=== PATIENT | male | born 1955 | race Caucasian/White ===

== ENCOUNTER → 2018-03-29 10:35 | Outpatient (CLI) | payer OTHER, MEDICAID, SELFPAY ==
--- NOTE | 2018-03-29 | DI.RAD.S_ITS ---
PROCEDURE: XR SHOULDER LT MIN 2V INDICATIONS: LEFT SHOULDER PAIN TECHNIQUE: 4 views of the shoulder were acquired. COMPARISON: None. FINDINGS: Bones: No fractures or dislocations. No suspicious bony lesions. Visualized ribs appear intact. There are mild degenerative changes of the glenohumeral and moderate degenerative changes of the acromioclavicular joints. Soft tissues: No suspicious soft tissue calcifications. Aortic atherosclerosis is incidentally noted. A small calcified granuloma seen within the left lung. IMPRESSION: 1. Mild to moderate degenerative changes of the left shoulder joints. No fractures. 2. Calcified granuloma at the left lung. 3. Aortic atherosclerosis. Dictated by: Jonathan Mooney M.D. on 03/29/2018 at 10:35 Approved by: Jonathan Mooney M.D. on 03/29/2018 at 10:36
== END ==
PROVIDERS: Family Provider Family Medicine; PCP Family Medicine; Visit Provider Family Medicine
DX: M25.512 Pain in left shoulder (principal); M19.012 Primary osteoarthritis, left shoulder; I70.0 Atherosclerosis of aorta; J98.4 Other disorders of lung
CPT/HCPCS: 73030

== ENCOUNTER → 2018-04-01 17:49 | Outpatient (CLI) | payer OTHER, MEDICAID, SELFPAY ==
--- NOTE | 2018-04-01 | DI.MRI.S_ITS ---
PROCEDURE: MR SHOULDER LT WO CON INDICATIONS: LEFT SHOULDER PAIN AND ELBOW PAIN POST FALL TECHNIQUE: Noncontrast oblique coronal T2 fast spin echo with fat saturation, oblique sagittal T1 spin echo and T2 fast spin echo with fat saturation, axial T1 spin echo and T2 fast spin echo with fat saturation through the shoulder. COMPARISON: None. FINDINGS: Image quality: Excellent. Rotator cuff: Distal supraspinatus tendinosis and moderate grade articular surface partial thickness tear at its insertion on greater tuberosity of humeral head is seen with possible full-thickness perforation involving most posterior fibers of the distal supraspinatus. Tendinosis of the articular surface partial-thickness involving distal infraspinatus is also seen at its insertion femoral head. Distal subscapularis tendon is intact. Sagittal images demonstrate very mild supraspinatus muscle atrophy. Bones and bursae: No bone marrow contusions or fractures. Intraosseous cyst formation and greater tuberosity of humeral head near rotator cuff tendon insertion site is seen. Mild to moderate acromioclavicular joint and glenohumeral joint osteoarthritis is seen. The acromion demonstrates conventional anatomy, without an os acromiale. Trace amount of fluid within subacromial subdeltoid bursa is seen. No gross loose body. Capsule and soft tissues: In the absence of intra-articular contrast, there is contour irregularity and signal abnormality involving inferior labrum a 5 to 7:00 position suspicious for anterior labral tear. The glenohumeral ligaments appear intact. The long head of the biceps tendon demonstrates normal location and morphology. The rotator interval appears normal, without fibrosis. The coracohumeral ligament is normal in thickness. IMPRESSION: 1. Moderate acromioclavicular joint and glenohumeral joint osteoarthritis. 2. Tendinosis of moderate grade articular surface partial-thickness involving distal supraspinatus at its insertion on greater tuberosity of humeral head. Possible full-thickness perforation involving most posterior fibers of distal supraspinatus. Tendinosis and low-grade articular surface partial-thickness tear involving distal infraspinatus. 3. Suggestion of inferior labral tear at 5 to 7:00 position. Dictated by: Tavo Gonzalez M.D. on 04/02/2018 at 8:45 Approved by: Tavo Gonzalez M.D. on 04/02/2018 at 9:33
--- NOTE | 2018-04-01 | DI.MRI.S_ITS ---
PROCEDURE: MR ELBOW LT W CON INDICATIONS: LEFT SHOULDER AND ELBOW PAIN POST FALL TECHNIQUE: Noncontrast coronal proton density fast spin echo and T2 fast spin echo with fat saturation, axial and sagittal T1 spin echo and T2 fast spin echo with fat saturation through the elbow. COMPARISON: None. FINDINGS: Image quality: Excellent. Lateral structures: The lateral ulnar collateral ligament and radial collateral ligament both appear intact. The overlying common extensor tendon also appears normal. Medial structures: The ulnar collateral ligament appears intact. The overlying common flexor tendon appears normal. T the he ulnar nerve appears normal in size and signal within the cubital tunnel. Anterior structures: The biceps and brachialis tendons both appear intact as they insert onto the proximal radius and ulna, respectively. No bicipitoradial bursal fluid. The median and radial neurovascular bundles appear normal; no focal muscle atrophy to suggest nerve impingement. Posterior structures: The conjoint triceps tendon from the long and lateral heads appears intact. The medial head of the triceps tendon also appears normal, with direct muscle insertion onto the olecranon. No olecranon bursal fluid. Bone and cartilage: There is marrow edema involving posterior aspect of olecranon with no discrete fracture line seen, suggestive of bony contusion. Osteoarthritic changes in elbow joints are seen. Small subchondral cyst formation involving the trochlea is seen with subtle marrow edema and thinning of overlying articulating cartilage suspicious for a tiny osteochondral lesion in this area measures 4 mm in size. No other area of abnormal marrow signal is seen. Small amount of joint fluid is seen, no gross loose body. IMPRESSION: 1. Suggestion of bony contusion involving posterior olecranon with no discrete fracture line seen. Osteoarthritic changes in elbow joint with suggestion of possible 4 mm osteochondral lesion involving trochlea. Small amount of joint fluid, no gross loose body. 2. Normal tendons and ligaments are grossly intact. No gross muscle signal abnormality. Dictated by: Tavo Gonzalez M.D. on 04/02/2018 at 9:33 Approved by: Tavo Gonzalez M.D. on 04/02/2018 at 9:45
== END ==
PROVIDERS: Family Provider Family Medicine; PCP Family Medicine; Visit Provider Family Medicine
DX: M25.512 Pain in left shoulder (principal); M25.522 Pain in left elbow; M19.012 Primary osteoarthritis, left shoulder; M75.112 Incomplete rotator cuff tear or rupture of left shoulder, not specified as traumatic; M19.022 Primary osteoarthritis, left elbow
CPT/HCPCS: 73221

== ENCOUNTER 2018-09-15 08:35 | Emergency (ER) | payer SELFPAY ==
[2018-09-15 08:43] VITALS: BP 148/85; PULSE 50; RESP 20; TEMP 36.5; O2SAT 100; BMI 25.1
--- NOTE | 2018-09-15 09:08 | ED.ABDPAIN ---
HPI - Abdominal Pain General Chief Complaint: Abdominal Pain Stated Complaint: lower right abdominal pain Time Seen by Provider: 09/15/18 09:08 Source: patient Mode of arrival: ambulatory Limitations: no limitations History of Present Illness HPI narrative: A 63-year-old male comes to the emergency department with complaint of pain in his right lower abdomen. He states it is just sort of a right of the midline. Patient states almost a point tenderness. 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 He was kneeling became worse he went to sit down on the toilet and became quite painful. It has been constant since then it does not radiate to the back or side her anywhere else. He states that he has not had any fevers. He did felt sort of hot and cold when his pain was most intense. He denies any vomiting. Denies any nausea. He has had normal bowel movements and urination with no pain. There is no testicular pain. Patient has had bilateral hernia repair in the inguinal area the left and the right. He states it is pretty close to that area. He states it feels a little puffy but he can't feel any nodules or clear lumps. Patient states he also has a cardiac stent. He takes an aspirin daily but no other medications regularly. He has had some orthopedic surgeries but no intra-abdominal. Patient denies any other symptoms he states that it does feel worse when he tries to move his leg around but he does not any pain in the leg. Related Data Home Medications Medication Instructions Recorded Confirmed aspirin 81 mg PO DAILY #0 07/31/11 09/15/18 Vitamins 1 dose PO DAILY 09/15/18 09/15/18 Previous Rx's Medication Instructions Recorded hydrocodone-acetaminophen [[place]] 1 tab PO Q6H PRN #7 tab 09/15/18 Allergies Allergy/AdvReac Type Severity Reaction Status Date / Time No Known Drug Allergies Allergy Verified 09/15/18 09:44 Review of Systems Review of Systems ROS Unobtainable: All systems reviewed & are unremarkable except as noted in HPI and below Constitutional Reports chills (When pain was intense), Denies fever(s), Denies lethargy and Denies weakness Cardiovascular Denies chest pain and Denies dyspnea Respiratory Denies dyspnea Gastrointestinal Gastrointestinal: Reports abdominal pain, Denies melena, Denies hematochezia, Denies change in bowel habits, Denies diarrhea, Denies nausea and Denies vomiting Genitourinary Reports as per HPI, Denies hematuria, Denies difficulty urinating, Denies genital pain, Denies dysuria, Denies flank pain, Denies testicular pain, Denies urinary frequency, Denies urinary hesitancy, Denies urinary incontinence and Denies urinary urgency Musculoskeletal Denies back pain Neurologic Denies weakness [facility] Medical History (Updated 09/15/18 @ 10:46 by Samara Mendoza DO) Coronary artery disease (Chronic) Surgical History (Updated 09/15/18 @ 09:22 by Samara Menodza DO) History of bilateral inguinal hernia repair (Chronic) History of heart artery stent (Chronic) Social History Smoking Status: Never smoker Social History Smoking Status: Never smoker Exam Narrative Exam Narrative: GENERAL: Alert and oriented x three, well-nourished, well-appearing male in moderate distress. HEENT: Head normocephalic, atraumatic, EOMI, pupils reactive, face symmetric, moist mucous membranes NECK: Supple, full range of motion CARDIOVASCULAR: Regular rate and rhythm without murmurs, rubs or gallops. RESPIRATORY: Breath sounds equal bilaterally, no wheezes rales or rhonchi. ABDOMEN: Soft, patient is mildly tender to palpation just right of the midline a little bit above the pubis, and I am able to feel a little bit of fullness but no lumps or clear hernias. Patient not have any skin changes, there is no redness, discharge or lesions. Patient is nontender throughout the rest of his abdomen. He does appear uncomfortable when he tries to move his leg. He does not have any pain in the inguinal creases. No lumps in the inguinal creases or hernias. No testicular hernia noted. Normoactive bowel sounds all 4 quadrants. No guarding or rebound, rigidity, no mass. : No CVA tenderness EXTREMITIES: Normal range of motion, no clubbing or edema. Neurovascularly intact NEUROLOGICAL: Cranial nerves II through XII grossly intact. Moving all extremities SKIN: Warm, dry, no petechiae, no rashes or lesions. Initial Vital Signs Initial Vital Signs: Vital Signs Temperature 97.7 F 05/29/19 08:43 Pulse Rate 50 L 09/15/18 08:43 Respiratory Rate 20 09/15/18 08:43 Blood Pressure 148/85 H 09/15/18 08:43 Pulse Oximetry 100 09/15/18 08:43 Course Orders Ordered: Discontinued Medications Sodium Chloride (Normal Saline 0.9%) 1,000 mls @ 1,000 mls/hr IV BOLUS ONE Stop: 09/15/18 10:16 Last Infusion: 09/15/18 10:38 Dose: 0 mls/hr Admin: 09/15/18 09:45 Dose: 1,000 mls/hr Ketorolac Tromethamine (Toradol) 30 mg IV NOW ONE Stop: 09/15/18 09:18 Last Admin: 09/15/18 09:45 Dose: 30 mg Vital Signs - 8 hr 09/15/18 11:05 Pulse Rate 69 Respiratory Rate 18 Blood Pressure 141/82 H Pulse Oximetry 100 MDM - Abdominal Pain Lab Data Attestation: I reviewed the patient's lab results. Result diagrams: 09/15/18 09:20 09/15/18 09:20 Lab Results 09/15/18 09/15/18 Range/Units 09:20 09:20 WBC 5.6 (4.5-11.0) X10^3/uL RBC 4.42 L (4.5-5.9) X10^6/uL Hgb 13.5 (13.5-17.5) g/dL Hct 39.5 L (41-53) % MCV 89.4 (80-100) fL MCH 30.5 (26-34) PG MCHC 34.1 (30-36) % RDW 13.3 (11.6-14.8) % Plt Count 208 (150-400) X10^3/uL Neut % (Auto) 64.6 (50-75) % Lymph % (Auto) 24.8 L (25-40) % [place] % (Auto) 6.9 (3-14) % Eos % (Auto) 2.8 (2-4) % Baso % (Auto) 0.9 (0-2) % Neut # (Auto) 3600 (9598-8146) /uL Lymph # (Auto) 1400 (4703-9001) /uL [place] # (Auto) 400 (0-900) /uL Eos # (Auto) 200 (0-450) /uL Baso # (Auto) 100 (0-100) /uL Sodium 138 (137-145) mmol/L Potassium 4.3 (3.4-5.1) mmol/L Chloride 101 (98-107) mmol/L Carbon Dioxide 30 (22-32) mmol/L BUN 13 (9-20) mg/dL Creatinine 0.70 (0.66-1.25) mg/dL Estimated GFR > 60.0 (>60) mL/min BUN/Creatinine Ratio 18.6 (6-22) Glucose 103 (80-110) mg/dL Calcium 9.2 (8.4-10.2) mg/dL Total Bilirubin 0.6 (0.2-1.3) mg/dL AST 48 (17-59) IU/L ALT 26 (21-72) IU/L Alkaline Phosphatase 60 (38-126) U/L Total Protein 6.6 (6.3-8.2) g/dL Albumin 4.1 (3.5-5.0) g/dL Globulin 2.5 (1.7-4.1) g/dL Albumin/Globulin Ratio 1.6 (1.0-2.8) Lipase 69 (23-300) U/L Point of care testing: Urine Dip Bedside Urine Glucose Negative Bedside Urine Bilirubin - Negative Bedside Urine Ketone - Negative Urine Specific [place] 1.015 Bedside Urine Occult Blood - Negative Bedside Urine pH 6 Bedside Urine Protein - Negative Bedside Urine Nitrite - Negative Bedside Urine Leukocytes - Negative Esterase Imaging Data CT scan - abdomen: Radiologist's impression: [address] [address] [address] Scan Report Signed Patient: Mike Malagon FMR#: [id number] : 5Acct:[id number] Age/Sex: 63 / MDate of Service: 09/15/18 Loc: ED Accession Number: [id number] Procedure: CT abdomen pelvis w con Ordering Provider: Samara Mendoza D.O. PROCEDURE: CT ABDOMEN PELVIS W CON INDICATIONS: pt tender over r suprapubic, area of old hernia, ? hernia. TECHNIQUE: After the administration of intravenous contrast, 5 mm thick sections acquired from the diaphragm to the symphysis. 5 mm coronal and sagittal reformats were acquired. For radiation dose reduction, the following was used: automated exposure control, adjustment of mA and/or kV according to patient size. COMPARISON: None. FINDINGS: Image quality: Excellent. ABDOMEN: Lung bases: Lung bases are clear. Heart size is normal. Solid organs: Liver is normal in size and enhancement. Gallbladder contains numerous small gallstones. Biliary system is non dilated. Pancreas enhances normally. Spleen is normal in size and enhancement. No adrenal nodules. Kidneys demonstrate normal size and enhancement, without hydronephrosis. Peritoneum and bowel: Bowel loops demonstrate normal wall thickness and caliber. No free fluid or air. Normal appendix. No free air, free fluid, or abscess cavity. Sigmoid diverticulosis without evidence of diverticulitis. Nodes and vessels: No retroperitoneal or mesenteric adenopathy by size criteria. Aorta and inferior vena cava are normal in size. Relatively advanced atherosclerotic calcifications. Miscellaneous: No ventral hernias. PELVIS: Genitourinary: Bladder wall thickness is normal. Miscellaneous: No inguinal hernias or adenopathy. Previous right inguinal hernia repair. No evidence of residual or recurrent hernia. Bones: No suspicious bony lesions. No vertebral body compression fractures. IMPRESSION: 1. No evidence of residual or recurrent right inguinal hernia. 2. Normal appendix. 3. No evidence acute abdominal process. 4. Atherosclerosis. 5. Sigmoid diverticulosis without evidence of diverticulitis. 6. Gallstones. Dictated by: Coleman Wilkins M.D. on 09/15/2018 at 10:30 Approved by: Coleman Wilkins M.D. on 09/15/2018 at 10:35 [facility] Narrative Medical decision making narrative: Patient I was not able to palpate an obvious hernia. CT does not show a hernia. Lab work is with a normal urine. patient has some sigmoid diverticulosis but his tenderness is more suprapubic region. Patient's pain has resolved. His lab work is normal. His urine is normal. He feels much better. 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 He thought it might be a muscle strain initially. We also discussed the any very very small hernia that self reduced and there was no longer any bowel when he took his images this would be a possibility although I was not able to palpate 1. We discussed red flag symptoms reasons to return. Patient is comfortable with this plan. Discharge Plan Departure Patient Disposition: Home Clinical Impression: Abdominal pain Discharge Date/Time: 09/15/18 11:06 Interventions: ED Discharge Assessment Last Done: 09/15/18 11:05 Instructions: Acute Abdominal Pain Activity Restrictions/Additional Instructions: Follow-up with primary care in the next 2-3 days for recheck of your symptoms are not improving. Continue medication as prescribed, this medication can make you sleepy so do not drive, perform hazardous activities or make any major decisions while taking it. Return to the emergency department for fevers greater 100.4 F, passing out, worsening abdominal pain, recurrent lumps, persistent vomiting, black or bloody stools. New testicular pain or difficulty with urination or other new or concerning symptoms. Prescriptions: New hydrocodone-acetaminophen [[place]] 5-325 mg tablet 1 tab PO Q6H PRN (Reason: pain) Qty: 7 RF: 0 No Action aspirin 81 mg Tablet,Delayed Release (Dr/Ec) 81 mg PO DAILY Qty: 0 RF: 0 Vitamins 1 dose PO DAILY RF: 0 Referrals: Anca Bhatia MD [Primary Care Provider] - Stand Alone Forms: Work Release Note
--- NOTE | 2018-09-15 09:17 | DI.CT.S_ITS ---
PROCEDURE: CT ABDOMEN PELVIS W CON INDICATIONS: pt tender over r suprapubic, area of old hernia, ? hernia. TECHNIQUE: After the administration of intravenous contrast, 5 mm thick sections acquired from the diaphragm to the symphysis. 5 mm coronal and sagittal reformats were acquired. For radiation dose reduction, the following was used: automated exposure control, adjustment of mA and/or kV according to patient size. COMPARISON: None. FINDINGS: Image quality: Excellent. ABDOMEN: Lung bases: Lung bases are clear. Heart size is normal. Solid organs: Liver is normal in size and enhancement. Gallbladder contains numerous small gallstones. Biliary system is non dilated. Pancreas enhances normally. Spleen is normal in size and enhancement. No adrenal nodules. Kidneys demonstrate normal size and enhancement, without hydronephrosis. Peritoneum and bowel: Bowel loops demonstrate normal wall thickness and caliber. No free fluid or air. Normal appendix. No free air, free fluid, or abscess cavity. Sigmoid diverticulosis without evidence of diverticulitis. Nodes and vessels: No retroperitoneal or mesenteric adenopathy by size criteria. Aorta and inferior vena cava are normal in size. Relatively advanced atherosclerotic calcifications. Miscellaneous: No ventral hernias. PELVIS: Genitourinary: Bladder wall thickness is normal. Miscellaneous: No inguinal hernias or adenopathy. Previous right inguinal hernia repair. No evidence of residual or recurrent hernia. Bones: No suspicious bony lesions. No vertebral body compression fractures. IMPRESSION: 1. No evidence of residual or recurrent right inguinal hernia. 2. Normal appendix. 3. No evidence acute abdominal process. 4. Atherosclerosis. 5. Sigmoid diverticulosis without evidence of diverticulitis. 6. Gallstones. Dictated by: Coleman Wilkins M.D. on 09/15/2018 at 10:30 Approved by: Coleman Wilkins M.D. on 09/15/2018 at 10:35
--- NOTE | 2018-09-15 09:24 | ED_ITS ---
HPI - Abdominal Pain General Chief Complaint: Abdominal Pain Stated Complaint: lower right abdominal pain Time Seen by Provider: 09/15/18 09:08 Source: patient Mode of arrival: ambulatory Limitations: no limitations History of Present Illness HPI narrative: A 63-year-old male comes to the emergency department with c omplaint of pain in his right lower abdomen. He states it is just sort of a right of the midline. Patient states almost a point tenderness. 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 He was kneeling became worse he went to sit down on the toilet and became quite painful. It has been constant since then it does not radiate to the back or side her anywhere else. He states that he has not had any fevers. He did felt sort of hot and cold when his pain was most intense. He denies any vomiting. Denies any nausea. He has had normal bowel movements and urination with no pain. There is no testicular pain. Patient has had bilateral hernia repair in the inguinal area the left and the right. He states it is pretty close to that area. He states it feels a little puffy but he can't feel any nodules or clear lumps. Patient states he also has a cardiac stent. He takes an aspirin daily but no other medications regularly. He has had some orthopedic surgeries but no intra-abdominal. Patient denies any other symptoms he states that it does feel worse when he tries to move his leg around but he does not any pain in the leg. Related Data Home Medications Medication Instructions Recorded Confirmed aspirin 81 mg PO DAILY #0 07/31/11 09/15/18 Vitamins 1 dose PO DAILY 09/15/18 09/15/18 Previous Rx's Medication Instructions Recorded hydrocodone-acetaminophen [Edison] 1 tab PO Q6H PRN #7 tab 09/15/18 Allergies Allergy/AdvReac Type Severity Reaction Status Date / Time No Known Drug Allergies Allergy Verified 09/15/18 09:44 Review of Systems Review of Systems ROS Unobtainable: All systems reviewed & are unremarkable except as noted in HPI and below Constitutional Reports chills (When pain was intense), Denies fever(s), Denies lethargy and D enies weakness Cardiovascular Denies chest pain and Denies dyspnea Respiratory Denies dyspnea Gastrointestinal Gastrointestinal: Reports abdominal pain, Denies melena, Denies hematochezia, Denies change in bowel habits, Denies diarrhea, Denies nausea and Denies vomiting Genitourinary Reports as per HPI, Denies hematuria, Denies difficulty urinating, Denies genital pain, Denies dysuria, Denies flank pain, Denies testicular pain, Denies urinary frequency, Denies urinary hesitancy, Denies urinary incontinence and Denies urinary urgency Musculoskeletal Denies back pain Neurologic Denies weakness [facility] Medical History (Updated 09/15/18 @ 10:46 by Samara Mendoza DO) Coronary artery disease (Chronic) Surgical History (Updated 09/15/18 @ 09:22 by Samara Mendoza DO) History of bilateral inguinal hernia repair (Chronic) History of heart artery stent (Chronic) Social History Smoking Status: Never smoker Social History Smoking Status: Never smoker Exam Narrative Exam Narrative: GENERAL: Alert and oriented x three, well-nourished, well- appearing male in moderate distress. HEENT: Head normocephalic, atraumatic, EOMI, pupils reactive, face symmetric, moist mucous membranes NECK: Supple, full range of motion CARDIOVASCULAR: Regular rate and rhythm without murmurs, rubs or gallops. RESPIRATORY: Breath sounds equal bilaterally, no wheezes rales or rhonchi. ABDOMEN: Soft, patient is mildly tender to palpation just right of the midline a little bit above the pubis, and I am able to feel a little bit of fullness but no lumps or clear hernias. Patient not have any skin changes, there is no redness, discharge or lesions. Patient is nontender throughout the rest of his abdomen. He does appear uncomfortable when he tries to move his leg. He does not have any pain in the inguinal creases. No lumps in the inguinal creases or hernias. No testicular hernia noted. Normoactive bowel sounds all 4 quadrants. No guarding or rebound, rigidity, no mass. : No CVA tenderness EXTREMITIES: Normal range of motion, no clubbing or edema. Neurovascularly intact NEUROLOGICAL: Cranial nerves II through XII grossly intact. Moving all extremities SKIN: Warm, dry, no petechiae, no rashes or lesions. Initial Vital Signs Initial Vital Signs: Vital Signs Temperature 97.7 F 09/15/18 08:43 Pulse Rate 50 L 09/15/18 08:43 Respiratory Rate 20 09/15/18 08:43 Blood Pressure 148/85 H 09/15/18 08:43 Pulse Oximetry 100 09/15/18 08:43 Course Orders Ordered: Discontinued Medications Sodium Chloride (Normal Saline 0.9%) 1,000 mls @ 1,000 mls/hr IV BOLUS ONE Stop: 09/15/18 10:16 Last Infusion: 09/15/18 10:38 Dose: 0 mls/hr Admin: 09/15/18 09:45 Dose: 1,000 mls/hr Ketorolac Tromethamine (Toradol) 30 mg IV NOW ONE Stop: 09/15/18 09:18 Last Admin: 09/15/18 09:45 Dose: 30 mg Vital Signs - 8 hr 09/15/18 11:05 Pulse Rate 69 Respiratory Rate 18 Blood Pressure 141/82 H Pulse Oximetry 100 MDM - Abdominal Pain Lab Data Attestation: I reviewed the patient's lab results. Result diagrams: 09/15/18 09:20 09/15/18 09:20 Lab Results 09/15/18 09/15/18 Range/Units 09:20 09:20 WBC 5.6 (4.5-11.0) X10^3/uL RBC 4.42 L (4.5-5.9) X10^6/uL Hgb 13.5 (13.5-17.5) g/dL Hct 39.5 L (41-53) % MCV 89.4 (80-100) fL MCH 30.5 (26-34) PG MCHC 34.1 (30-36) % RDW 13.3 (11.6-14.8) % Plt Count 208 (150-400) X10^3/uL Neut % (Auto) 64.6 (50-75) % Lymph % (Auto) 24.8 L (25-40) % Gilchrist % (Auto) 6.9 (3-14) % Eos % (Auto) 2.8 (2-4) % Baso % (Auto) 0.9 (0-2) % Neut # (Auto) 3600 (5693-6211) /uL Lymph # (Auto) 1400 (0191-9874) /uL Gilchrist # (Auto) 400 (0-900) /uL Eos # (Auto) 200 (0-450) /uL Baso # (Auto) 100 (0-100) /uL Sodium 138 (137-145) mmol/L Potassium 4.3 (3.4-5.1) mmol/L Chloride 101 (98-107) mmol/L Carbon Dioxide 30 (22-32) mmol/L BUN 13 (9-20) mg/dL Creatinine 0.70 (0.66-1.25) mg/dL Estimated GFR > 60.0 (>60) mL/min BUN/Creatinine Ratio 18.6 (6-22) Glucose 103 (80-110) mg/dL Calcium 9.2 (8.4-10.2) mg/dL Total Bilirubin 0.6 (0.2-1.3) mg/dL AST 48 (17-59) IU/L ALT 26 (21-72) IU/L Alkaline Phosphatase 60 (38-126) U/L Total Protein 6.6 (6.3-8.2) g/dL Albumin 4.1 (3.5-5.0) g/dL Globulin 2.5 (1.7-4.1) g/dL Albumin/Globulin Ratio 1.6 (1.0-2.8) Lipase 69 (23-300) U/L Point of care testing: Urine Dip Bedside Urine Glucose Negative Bedside Urine Bilirubin - Negative Bedside Urine Ketone - Negative Urine Specific [place] 1.015 Bedside Urine Occult Blood - Negative Bedside Urine pH 6 Bedside Urine Protein - Negative Bedside Urine Nitrite - Negative Bedside Urine Leukocytes - Negative Esterase Imaging Data CT scan - abdomen: Radiologist's impression: [address] [address] [address] Scan Report Signed Patient: Mike Malagon FMR#: [id number] : 5Acct:[id number] Age/Sex: 63 / MDate of Service: 09/15/18 Loc: ED Accession Number: [id number] Procedure: CT abdomen pelvis w con Ordering Provider: Samara Mendoza D.O. PROCEDURE: CT ABDOMEN PELVIS W CON INDICATIONS: pt tender over r suprapubic, area of old hernia, ? hernia. TECHNIQUE: After the administration of intravenous contrast, 5 mm thick sections acquired from the diaphragm to the symphysis. 5 mm coronal and sagittal reformats were acquired. For radiation dose reduction, the following was used: automated exposure control, adjustment of mA and/or kV according to patient size. COMPARISON: None. FINDINGS: Image quality: Excellent. ABDOMEN: Lung bases: Lung bases are clear. Heart size is normal. Solid organs: Liver is normal in size and enhancement. Gallbladder contains numerous small gallstones. Biliary system is non dilated. Pancreas enhances normally. Spleen is normal in size and enhancement. No adrenal nodules. Kidneys demonstrate normal size and enhancement, without hydronephrosis. Peritoneum and bowel: Bowel loops demonstrate normal wall thickness and caliber. No free fluid or air. Normal appendix. No free air, free fluid, or abscess cavity. Sigmoid diverticulosis without evidence of diverticulitis. Nodes and vessels: No retroperitoneal or mesenteric adenopathy by size crit eria. Aorta and inferior vena cava are normal in size. Relatively advanced atherosclerotic calcifications. Miscellaneous: No ventral hernias. PELVIS: Genitourinary: Bladder wall thickness is normal. Miscellaneous: No inguinal hernias or adenopathy. Previous right inguinal hernia repair. No evidence of residual or recurrent hernia. Bones: No suspicious bony lesions. No vertebral body compression fractures. IMPRESSION: 1. No evidence of residual or recurrent right inguinal hernia. 2. Normal appendix. 3. No evidence acute abdominal process. 4. Atherosclerosis. 5. Sigmoid diverticulosis without evidence of diverticulitis. 6. Gallstones. Dictated by: Coleman Wilkins M.D. on 09/15/2018 at 10:30 Approved by: Coleman Wilkins M.D. on 09/15/2018 at 10:35 [facility] Narrative Medical decision making narrative: Patient I was not able to palpate an obvious hernia. CT does not show a hernia. Lab work is with a normal urine. patient has some sigmoid diverticulosis but his tenderness is more suprapubic region. Patient's pain has resolved. His lab work is normal. His urine is normal. He feels much better. 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 He thought it might be a muscle strain initially. We also discussed the any very very small hernia that self reduced and there was no longer any bowel when he took his images this would be a possibility although I was not able to palpate 1. We discussed red flag symptoms reasons to return. Patient is comfortable with this plan. Discharge Plan Departure Patient Disposition: Home Clinical Impression: Abdominal pain Discharge Date/Time: 09/15/18 11:06 Interventions: ED Discharge Assessment Last Done: 09/15/18 11:05 Instructions: Acute Abdominal Pain Activity Restrictions/Additional Instructions: Follow-up with primary care in the next 2-3 days for recheck of your symptoms are not improving. Continue medication as prescribed, this medication can make you sleepy so do not drive, perform hazardous activities or make any major decisions while taking it. Return to the emergency department for fevers greater 100.4 F, passing out, worsening abdominal pain, recurrent lumps, persistent vomiting, black or bloody stools. New testicular pain or difficulty with urination or other new or concerning symptoms. Prescriptions: New hydrocodone-acetaminophen [Edison] 5-325 mg tablet 1 tab PO Q6H PRN (Reason: pain) Qty: 7 RF: 0 No Action aspirin 81 mg Tablet,Delayed Release (Dr/Ec) 81 mg PO DAILY Qty: 0 RF: 0 Vitamins 1 dose PO DAILY RF: 0 Referrals: Anca Bhatia MD [Primary Care Provider] - Stand Alone Forms: Work Release Note
[2018-09-15 09:27] LABS: Add Manual Diff / Slide Review NO; Basophils Absolute Auto 100 /uL (0-100); Basophils Percent Auto 0.9 % (0-2); Eosinophils Absolute Auto 200 /uL (0-450); Eosinophils Percent Auto 2.8 % (2-4); Hematocrit 39.5 % (41-53); Hemoglobin 13.5 g/dL (13.5-17.5); Lymphocytes Absolute Auto 1400 /uL (1100-4500); Lymphocytes Percent Auto 24.8 % (25-40); Mean Corpuscular HGB Conc 34.1 % (30-36); Mean Corpuscular Hemoglobin 30.5 PG (26-34); Mean Corpuscular Volume 89.4 fL (80-100); Monocytes Absolute Auto 400 /uL (0-900); Monocytes Percent Auto 6.9 % (3-14); Neutrophils Absolute Auto 3600 /uL (1500-7000); Neutrophils Percent Auto 64.6 % (50-75); Platelet Count 208 X10^3/uL (150-400); Red Blood Cell Count 4.42 X10^6/uL (4.5-5.9); Red Cell Distribution Width 13.3 % (11.6-14.8); White Blood Cell Count 5.6 X10^3/uL (4.5-11.0)
[2018-09-15 09:30] VITALS: BP 140/83; PULSE 46; RESP 16; O2SAT 99
[2018-09-15 09:33] LABS: Alanine Aminotransferase 26 IU/L (21-72); Albumin 4.1 g/dL (3.5-5.0); Albumin Globulin Ratio 1.6 (1.0-2.8); Alkaline Phosphatase 60 U/L (38-126); Aspartate Aminotransferase 48 IU/L (17-59); BUN Creatinine Ratio 18.6 (6-22); Bilirubin Total 0.6 mg/dL (0.2-1.3); Blood Urea Nitrogen 13 mg/dL (9-20); Calcium 9.2 mg/dL (8.4-10.2); Carbon Dioxide 30 mmol/L (22-32); Chloride 101 mmol/L (98-107); Estimated Glomerular Filt Rate > 60.0 mL/min (>60); Globulin 2.5 g/dL (1.7-4.1); Glucose 103 mg/dL (80-110); HEMOLYSIS 27 (0-50); Lipase 69 U/L (23-300); Potassium 4.3 mmol/L (3.4-5.1); Sodium 138 mmol/L (137-145); Total Protein 6.6 g/dL (6.3-8.2)
[2018-09-15] MEDS: SODIUM CHLORIDE 0.9% 1,000 ML 1000 ML IV (09:45)
[2018-09-15] MEDS: KETOROLAC 60 MG/2 ML VIAL 30 MG IV (09:45)
[2018-09-15 10:30] VITALS: BP 143/79; PULSE 57; RESP 18; O2SAT 94
[2018-09-15 11:05] VITALS: BP 141/82; PULSE 69; RESP 18; O2SAT 100
== END 2018-09-15 11:06 | disposition home or self-care (01) ==
PROVIDERS: Emergency Provider Emergency Medicine; Family Provider Family Medicine; PCP Family Medicine
DX: R10.9 Unspecified abdominal pain (principal); Z79.82 Long term (current) use of aspirin; Z95.818 Presence of other cardiac implants and grafts
CPT/HCPCS: 36591; 74177; 80053; 81003; 83690; 85025; 96361; 96374; 99283; 99284; J1885; Q9967

== ENCOUNTER 2019-08-29 10:59 | Emergency (ER) | payer OTHER, SELFPAY ==
[2019-08-29 11:12] VITALS: BP 109/62; PULSE 63; RESP 20; TEMP 36.4; O2SAT 96
--- NOTE | 2019-08-29 11:18 | DI.RAD.S_ITS ---
PROCEDURE: XR CHEST 2V INDICATIONS: Shortness of breath upon exertion x 1 mo. Non smoker. TECHNIQUE: 2 views of the chest were acquired. COMPARISON: [facility], CT, CT ABDOMEN PELVIS W CON, 09/15/2018, 10:06. FINDINGS: Surgical changes and devices: None. Lungs and pleura: No areas of focal lung consolidation can be seen. Mild areas of interstitial prominence can be seen inferiorly. No pleural effusions or pneumothorax. Mediastinum: Mediastinal contours are normal. Heart size is normal. Bones and chest wall: No suspicious bony abnormalities. Soft tissues appear unremarkable. IMPRESSION: Mild areas of interstitial elements can be seen inferiorly. Differential diagnosis includes mild pulmonary edema, atypical or viral infiltrate, and artifact. If clinically appropriate, please consider a followup plain film series, performed in deep inspiration versus a dedicated chest CT with IV contrast for further evaluation. Dictated by: Bolivar Buenrostro M.D. on 08/29/2019 at 11:03 Approved by: Bolivar Buenrostro M.D. on 08/29/2019 at 11:05
[2019-08-29 13:12] LABS: Add Manual Diff / Slide Review NO; Basophils Absolute Auto 100 /uL (0-100); Basophils Percent Auto 0.9 % (0-2); Eosinophils Absolute Auto 100 /uL (0-450); Eosinophils Percent Auto 2.1 % (2-4); Hematocrit 39.8 % (41-53); Hemoglobin 13.5 g/dL (13.5-17.5); Lymphocytes Absolute Auto 1300 /uL (1100-4500); Lymphocytes Percent Auto 22.4 % (25-40); Mean Corpuscular HGB Conc 33.8 % (30-36); Mean Corpuscular Hemoglobin 30.7 PG (26-34); Mean Corpuscular Volume 90.6 fL (80-100); Monocytes Absolute Auto 400 /uL (0-900); Monocytes Percent Auto 6.7 % (3-14); Neutrophils Absolute Auto 4000 /uL (1500-7000); Neutrophils Percent Auto 67.9 % (50-75); Platelet Count 206 X10^3/uL (150-400); Red Blood Cell Count 4.39 X10^6/uL (4.5-5.9); White Blood Cell Count 5.9 X10^3/uL (4.5-11.0)
[2019-08-29 13:14] VITALS: O2SAT 98
[2019-08-29 13:25] LABS: Lactate (Lactic Acid) 0.8 mmol/L (0.7-2.1)
[2019-08-29 13:29] LABS: Alanine Aminotransferase 21 IU/L (<50); Albumin 4.3 g/dL (3.5-5.0); Albumin Globulin Ratio 1.7 (1.0-2.8); Alkaline Phosphatase 59 U/L (38-126); Aspartate Aminotransferase 29 IU/L (17-59); BUN Creatinine Ratio 17.9 (6-22); Bilirubin Total 0.4 mg/dL (0.2-1.3); Blood Urea Nitrogen 14 mg/dL (9-20); Calcium 9.5 mg/dL (8.4-10.2); Carbon Dioxide 29 mmol/L (22-32); Chloride 103 mmol/L (98-107); Creatine Kinase 134 U/L (55-170); Estimated Glomerular Filt Rate > 60.0 mL/min (>60); Globulin 2.6 g/dL (1.7-4.1); Glucose 98 mg/dL (80-110); HEMOLYSIS < 15 (0-50); Potassium 4.3 mmol/L (3.4-5.1); Sodium 138 mmol/L (137-145); Total Protein 6.9 g/dL (6.3-8.2)
[2019-08-29 13:29] LABS: Fractionated Inspired Oxygen 21; HCO3 ABG 27 mmol/L (22-26); Oxygen Saturation ABG 97 % (95-100); PCO2 ABG 42.4 mmHg (35-45); PO2 ABG 91 mmHg (80-100); TCO2 ABG 29 mmol/L (21-31); pH ABG 7.42 (7.35-7.45)
[2019-08-29] MEDS: ALBUTEROL HFA 60 PUFF/8 GM INH INH (13:37)
[2019-08-29 13:38] LABS: NT-proBNP (BNP-Adult 18+) 72 pg/mL (<125)
[2019-08-29 13:41] LABS: Troponin I < 0.012 ng/mL (0.01-0.034)
[2019-08-29 13:45] LABS: CKMB % Relative Index 1.9 % (1.5-5.0); Creatine Kinase MB 2.53 ng/mL (<2.37); Procalcitonin < 0.05 ng/mL (<0.5)
--- NOTE | 2019-08-29 14:18 | ED.SOB ---
HPI - SOB/Dyspnea <DEYA Bustillo - Last Filed: 08/29/19 20:06> General Chief Complaint: Shortness of Breath/Dyspnea Stated Complaint: Shortness of Breath getting worse Time Seen by Provider: 08/29/19 12:58 Source: patient Mode of arrival: Ambulatory Limitations: no limitations History of Present Illness HPI Narrative: 64yo male with a history of a cardiac stent placement and significant seasonal allergies, (for which he takes Sudafed for), and chronic sinus infections, presents to to the emergency department for shortness of breath with exertion for the past month. 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 Patient states he notice increasing shortness of breath for the past few weeks, he states moves heavy packages around and developed shortness of breath. He states he sits down for a minute or so and symptoms resolve. Patient states occasionally feels like he is wheezing but is unsure. Patient denies taking any antihistamine medications for his allergies. He denies chest pain, dizziness, diaphoresis, heartburn, abdominal pain, nausea, vomiting, diarrhea, cough, fever, or any other symptoms at this time or during these episodes. Patient states ?I was told to get checked out by work. Related Data Home Medications Medication Instructions Recorded Confirmed aspirin 81 mg PO DAILY #0 07/31/11 09/15/18 Vitamins 1 dose PO DAILY 09/15/18 09/15/18 Previous Rx's Medication Instructions Recorded hydrocodone-acetaminophen [Avant] 1 tab PO Q6H PRN #7 tab 09/15/18 Allergies Allergy/AdvReac Type Severity Reaction Status Date / Time No Known Drug Allergies Allergy Verified 08/29/19 11:16 Review of Systems <DEYA Bustillo - Last Filed: 08/29/19 20:06> Review of Systems Narrative: REVIEW OF SYSTEMS: GENERAL: Denies fevers. HENT: No head trauma or hearing loss. EYES: No vision changes. CARDIOVASCULAR: No chest pain or syncope. RESPIRATORY: Reports shortness of breath, no cough, see HPI. GASTROINTESTINAL: No nausea, vomiting, diarrhea, or constipation. MUSCULOSKELETAL: No weakness or injury. INTEGUMENTARY: No rash, lesions, or pruritus. NEURO: No memory loss, or confusion. Patient History <DEYA Bustillo - Last Filed: 08/29/19 20:06> Medical History Coronary artery disease (Chronic) Surgical History History of bilateral inguinal hernia repair (Chronic) History of heart artery stent (Chronic) Social History Smoking Status: Never smoker Smoking Status: Never smoker alcohol intake frequency: 0-2 drinks per day Substance Use Type: marijuana Exam <DEYA Bustillo - Last Filed: 08/29/19 20:06> Initial Vital Signs Initial Vital Signs: Vital Signs Temperature 97.6 F 08/29/19 11:12 Pulse Rate 63 08/29/19 11:12 Respiratory Rate 08/29/19 11:12 Blood Pressure 109/62 08/29/19 11:12 Pulse Oximetry 96 08/29/19 11:12 PHYSICAL EXAMINATION: GENERAL: Well groomed, alert, and cooperative. Answers questions promptly and appropriately. Vital signs noted. HENT: Normocephalic, atraumatic. Ear canals patent. Oropharynx without erythema. Tonsils are not present. EYES: Conjunctiva pink, sclera white, no periorbital swelling. No discharge. CHEST: Normal to inspection and without deformities. CARDIOVASCULAR: S1 and S2 sounds normal. Regular rate and rhythm, no murmurs, clicks, or bruits. RESPIRATORY: Normal respiratory rate, trachea midline, airway patent. No stridor, nasal flaring or accessory muscle use. Able to speak in full sentences. Lungs are clear in all pate without wheeze, rhonchi, or crackles. ABD: Abdomen soft and nontender. MUSCULOSKELETAL: Normal gait and coordination. Equal tone and mass bilaterally. EXTREMITIES: Moves all extremities. SKIN: Warm, dry, soft, appropriate color for ethnicity. No lesions, rashes, or wounds to visualized areas. NEURO: Alert and Oriented X 3. Good coordination. No ataxia or cognitive issues. PSYCH: Appropriate affect and mood. <Bentley Day MD - Last Filed: 08/30/19 07:24> Initial Vital Signs Initial Vital Signs: Vital Signs Temperature 97.6 F 08/29/19 11:12 Pulse Rate 63 08/29/19 11:12 Respiratory Rate 20 08/29/19 11:12 Blood Pressure 109/62 08/29/19 11:12 Pulse Oximetry 96 08/29/19 11:12 Course <DEYA Bustillo - Last Filed: 08/29/19 20:06> Course Course Narrative: Patient was given an albuterol inhaler which he states significantly improved his symptoms. Upon discharge, discussed with patient treating condition with albuterol and antihistamine. We discussed the pros and cons of using steroids in addition. Patient declines steroids at this time and would like to try the albuterol inhaler antihistamine 1st. He verbalized importance of follow-up with PCP and the importance of return precautions for new or worsening symptoms. Orders Ordered: Discontinued Medications Albuterol (Ventolin Hfa) 2 puff INH NOW ONE Stop: 08/29/19 13:35 Last Admin: 08/29/19 13:37 Dose: 2 puff Documented by: ANGEL Albuterol/Ipratropium (Duoneb) 3 ml INH NOW ONE Stop: 08/29/19 12:42 Last Admin: 08/29/19 13:14 Dose: Not Given Documented by: KIMBERLY Albuterol/Ipratropium (Combivent Respimat) 2 puff INH NOW ONE Stop: 08/29/19 13:16 Last Admin: 08/29/19 13:58 Dose: Not Given Documented by: KIMBERLY Consultations Consultation #1: Patient staffed with Dr. Day, discussed tests, test results, and plan of care. Vital Signs Vital signs: Vital Signs - 8 hr 08/29/19 13:14 08/29/19 14:48 Temperature 97.9 F Pulse Rate 56 L Respiratory Rate 16 Blood Pressure [Left Arm] 143/70 H Pulse Oximetry 98 97 <Bentley Day MD - Last Filed: 08/30/19 07:24> Orders Ordered: Discontinued Medications Albuterol (Ventolin Hfa) 2 puff INH NOW ONE Stop: 08/29/19 13:35 Last Admin: 08/29/19 13:37 Dose: 2 puff Documented by: ANGEL Albuterol/Ipratropium (Duoneb) 3 ml INH NOW ONE Stop: 08/29/19 12:42 Last Admin: 08/29/19 13:14 Dose: Not Given Documented by: KSCHERE Albuterol/Ipratropium (Combivent Respimat) 2 puff INH NOW ONE Stop: 08/29/19 13:16 Last Admin: 08/29/19 13:58 Dose: Not Given Documented by: KIMBERLY Vital Signs Vital signs: Vital Signs - 8 hr 08/29/19 13:14 08/29/19 14:48 Temperature 97.9 F Pulse Rate 56 L Respiratory Rate 16 Blood Pressure [Left Arm] 143/70 H Pulse Oximetry 98 97 MDM - SOB/Dyspnea <DEYA Bustillo - Last Filed: 08/29/19 20:06> Medical Records Attestation: I reviewed the patient's medical records. Lab Data Attestation: I reviewed the patient's lab results. Result diagrams: 08/29/19 13:05 08/29/19 13:05 Labs: Lab Results 08/29/19 08/29/19 08/29/19 Range/Units 13:05 13:05 13:05 WBC 5.9 (4.5-11.0) X10^3/uL RBC 4.39 L (4.5-5.9) X10^6/uL Hgb 13.5 (13.5-17.5) g/dL Hct 39.8 L (41-53) % MCV 90.6 (80-100) fL MCH 30.7 (26-34) PG MCHC 33.8 (30-36) % RDW 14.0 (11.6-14.8) % Plt Count 206 (150-400) X10^3/uL Neut % (Auto) 67.9 (50-75) % Lymph % (Auto) 22.4 L (25-40) % [place] % (Auto) 6.7 (3-14) % Eos % (Auto) 2.1 (2-4) % Baso % (Auto) 0.9 (0-2) % Neut # (Auto) 4000 (6189-5283) /uL Lymph # (Auto) 1300 (8607-5938) /uL [place] # (Auto) 400 (0-900) /uL Eos # (Auto) 100 (0-450) /uL Baso # (Auto) 100 (0-100) /uL PT 12.0 (10.1-12.7) SECONDS INR 1.0 (0.9-1.3) ABG pH (7.35-7.45) ABG pCO2 (35-45) mmHg ABG pO2 (80-100) mmHg ABG HCO3 (22-26) mmol/L ABG Total CO2 (21-31) mmol/L ABG O2 Saturation (95-100) % ABG Base Excess (-2-2) mmol/L FiO2 Sodium 138 (137-145) mmol/L Potassium 4.3 (3.4-5.1) mmol/L Chloride 103 (98-107) mmol/L Carbon Dioxide 29 (22-32) mmol/L BUN 14 (9-20) mg/dL Creatinine 0.78 (0.66-1.25) mg/dL Estimated GFR > 60.0 (>60) mL/min BUN/Creatinine Ratio 17.9 (6-22) Glucose 98 (80-110) mg/dL Lactate (0.7-2.1) mmol/L Calcium 9.5 (8.4-10.2) mg/dL Total Bilirubin 0.4 (0.2-1.3) mg/dL AST 29 (17-59) IU/L ALT 21 (<50) IU/L Alkaline Phosphatase 59 (38-126) U/L Total Creatine Kinase 134 (55-170) U/L CK-MB (CK-2) 2.53 H (<2.37) ng/mL CK-MB (CK-2) Rel Index 1.9 (1.5-5.0) % Troponin I < 0.012 (0.01-0.034) ng/mL NT-Pro-B Natriuret Pep (<125) pg/mL Total Protein 6.9 (6.3-8.2) g/dL Albumin 4.3 (3.5-5.0) g/dL Globulin 2.6 (1.7-4.1) g/dL Albumin/Globulin Ratio 1.7 (1.0-2.8) Procalcitonin (<0.5) ng/mL 08/29/19 08/29/19 08/29/19 Range/Units 13:05 13:05 13:05 WBC (4.5-11.0) X10^3/uL RBC (4.5-5.9) X10^6/uL Hgb (13.5-17.5) g/dL Hct (41-53) % MCV (80-100) fL MCH (26-34) PG MCHC (30-36) % RDW (11.6-14.8) % Plt Count (150-400) X10^3/uL Neut % (Auto) (50-75) % Lymph % (Auto) (25-40) % [place] % (Auto) (3-14) % Eos % (Auto) (2-4) % Baso % (Auto) (0-2) % Neut # (Auto) (0350-6754) /uL Lymph # (Auto) (9718-3903) /uL [place] # (Auto) (0-900) /uL Eos # (Auto) (0-450) /uL Baso # (Auto) (0-100) /uL PT (10.1-12.7) SECONDS INR (0.9-1.3) ABG pH (7.35-7.45) ABG pCO2 (35-45) mmHg ABG pO2 (80-100) mmHg ABG HCO3 (22-26) mmol/L ABG Total CO2 (21-31) mmol/L ABG O2 Saturation (95-100) % ABG Base Excess (-2-2) mmol/L FiO2 Sodium (137-145) mmol/L Potassium (3.4-5.1) mmol/L Chloride (98-107) mmol/L Carbon Dioxide (22-32) mmol/L BUN (9-20) mg/dL Creatinine (0.66-1.25) mg/dL Estimated GFR (>60) mL/min BUN/Creatinine Ratio (6-22) Glucose (80-110) mg/dL Lactate 0.8 (0.7-2.1) mmol/L Calcium (8.4-10.2) mg/dL Total Bilirubin (0.2-1.3) mg/dL AST (17-59) IU/L ALT (<50) IU/L Alkaline Phosphatase (38-126) U/L Total Creatine Kinase (55-170) U/L CK-MB (CK-2) (<2.37) ng/mL CK-MB (CK-2) Rel Index (1.5-5.0) % Troponin I (0.01-0.034) ng/mL NT-Pro-B Natriuret Pep 72 (<125) pg/mL Total Protein (6.3-8.2) g/dL Albumin (3.5-5.0) g/dL Globulin (1.7-4.1) g/dL Albumin/Globulin Ratio (1.0-2.8) Procalcitonin < 0.05 (<0.5) ng/mL 08/29/19 Range/Units 13:23 WBC (4.5-11.0) X10^3/uL RBC (4.5-5.9) X10^6/uL Hgb (13.5-17.5) g/dL Hct (41-53) % MCV (80-100) fL MCH (26-34) PG MCHC (30-36) % RDW (11.6-14.8) % Plt Count (150-400) X10^3/uL Neut % (Auto) (50-75) % Lymph % (Auto) (25-40) % [place] % (Auto) (3-14) % Eos % (Auto) (2-4) % Baso % (Auto) (0-2) % Neut # (Auto) (8234-3910) /uL Lymph # (Auto) (4633-5905) /uL [place] # (Auto) (0-900) /uL Eos # (Auto) (0-450) /uL Baso # (Auto) (0-100) /uL PT (10.1-12.7) SECONDS INR (0.9-1.3) ABG pH 7.42 (7.35-7.45) ABG pCO2 42.4 (35-45) mmHg ABG pO2 91 (80-100) mmHg ABG HCO3 27 H (22-26) mmol/L ABG Total CO2 29 (21-31) mmol/L ABG O2 Saturation 97 (95-100) % ABG Base Excess 3.0 H (-2-2) mmol/L FiO2 21 Sodium (137-145) mmol/L Potassium (3.4-5.1) mmol/L Chloride (98-107) mmol/L Carbon Dioxide (22-32) mmol/L BUN (9-20) mg/dL Creatinine (0.66-1.25) mg/dL Estimated GFR (>60) mL/min BUN/Creatinine Ratio (6-22) Glucose (80-110) mg/dL Lactate (0.7-2.1) mmol/L Calcium (8.4-10.2) mg/dL Total Bilirubin (0.2-1.3) mg/dL AST (17-59) IU/L ALT (<50) IU/L Alkaline Phosphatase (38-126) U/L Total Creatine Kinase (55-170) U/L CK-MB (CK-2) (<2.37) ng/mL CK-MB (CK-2) Rel Index (1.5-5.0) % Troponin I (0.01-0.034) ng/mL NT-Pro-B Natriuret Pep (<125) pg/mL Total Protein (6.3-8.2) g/dL Albumin (3.5-5.0) g/dL Globulin (1.7-4.1) g/dL Albumin/Globulin Ratio (1.0-2.8) Procalcitonin (<0.5) ng/mL Imaging Data Chest x-ray: Radiologist's Impression: [address] [address] XRay Report Signed Patient: Mike Malagon FMR#: [id number] : 5Acct:[id number] Age/Sex: 64 / MDate of Service: 08/29/19 Loc: ED Accession Number: [id number] Procedure: XR chest 2V Ordering Provider: Bentley Day MD PROCEDURE: XR CHEST 2V INDICATIONS: Shortness of breath upon exertion x 1 mo. Non smoker. TECHNIQUE: 2 views of the chest were acquired. COMPARISON: [facility], CT, CT ABDOMEN PELVIS W CON, 09/15/2018, 10:06. FINDINGS: Surgical changes and devices: None. Lungs and pleura: No areas of focal lung consolidation can be seen. Mild areas of interstitial prominence can be seen inferiorly. No pleural effusions or pneumothorax. Mediastinum: Mediastinal contours are normal. Heart size is normal. Bones and chest wall: No suspicious bony abnormalities. Soft tissues appear unremarkable. IMPRESSION: Mild areas of interstitial elements can be seen inferiorly. Differential diagnosis includes mild pulmonary edema, atypical or viral infiltrate, and artifact. If clinically appropriate, please consider a followup plain film series, performed in deep inspiration versus a dedicated chest CT with IV contrast for further evaluation. Dictated by: Bolivar Buenrostro M.D. on 08/29/2019 at 11:03 Approved by: Bloivar Buenrostro M.D. on 08/29/2019 at 11:05 ECG Data Interpretation: Sinus bradycardia. Rate 53, KS interval 180, QTC 386. V2 with artifact. No ST elevation or ST depression. EKG also viewed Dr. Day per protocol. MDM Narrative Medical decision making narrative: 64-year-old male with a history of a stent placement as well as seasonal allergies presenting to the emergency department with increasing shortness of breath over the past month which is worse the past few days. I suspect patient's symptoms are most likely caused by reactive airway disease due to history of allergies, isolated shortness of breath, decreased symptoms after administration of albuterol, lack of other concerning findings such as dizziness, diaphoresis, or chest pain. Additionally, patient reports having seasonal allergies for which he takes a decongestant for and no antihistamines. And laboratory work within normal limits. Less likely infectious etiology such as pneumonia due to lack of other systemic symptoms such as fever, cough, or tachycardia. 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 Less likely infectious bacterial pneumonia. Differential also includes COVID-19 but due to lack of other symptoms such as fever or cough and reports of significant allergies, I suspect this is most likely reactive airways versus viral etiology. However, had this conversation with patient, no testing was ordered as patient is hemodynamically stable, not hypoxic, agrees return if worsening symptoms for testing. Less likely cardiac etiology due to lack of concerning symptoms such as chest pain. EKG without acute changes, troponin within normal limits, and nature of symptoms resolved with albuterol administration. Less likely GERD or acute abdominal etiology as symptoms are isolated shortness of breath the increase of activity without abdominal pain. A CT within normal limits. Precautions given for new or worsening symptoms. Patient agrees to plan of care and verbalizes understanding. <Bentley Day MD - Last Filed: 08/30/19 07:24> Lab Data Labs: Lab Results 08/29/19 08/29/19 08/29/19 Range/Units 13:05 13:05 13:05 WBC 5.9 (4.5-11.0) X10^3/uL RBC 4.39 L (4.5-5.9) X10^6/uL Hgb 13.5 (13.5-17.5) g/dL Hct 39.8 L (41-53) % MCV 90.6 (80-100) fL MCH 30.7 (26-34) PG MCHC 33.8 (30-36) % RDW 14.0 (11.6-14.8) % Plt Count 206 (150-400) X10^3/uL Neut % (Auto) 67.9 (50-75) % Lymph % (Auto) 22.4 L (25-40) % [place] % (Auto) 6.7 (3-14) % Eos % (Auto) 2.1 (2-4) % Baso % (Auto) 0.9 (0-2) % Neut # (Auto) 4000 (6288-4255) /uL Lymph # (Auto) 1300 (4587-7580) /uL [place] # (Auto) 400 (0-900) /uL Eos # (Auto) 100 (0-450) /uL Baso # (Auto) 100 (0-100) /uL PT 12.0 (10.1-12.7) SECONDS INR 1.0 (0.9-1.3) ABG pH (7.35-7.45) ABG pCO2 (35-45) mmHg ABG pO2 (80-100) mmHg ABG HCO3 (22-26) mmol/L ABG Total CO2 (21-31) mmol/L ABG O2 Saturation (95-100) % ABG Base Excess (-2-2) mmol/L FiO2 Sodium 138 (137-145) mmol/L Potassium 4.3 (3.4-5.1) mmol/L Chloride 103 (98-107) mmol/L Carbon Dioxide 29 (22-32) mmol/L BUN 14 (9-20) mg/dL Creatinine 0.78 (0.66-1.25) mg/dL Estimated GFR > 60.0 (>60) mL/min BUN/Creatinine Ratio 17.9 (6-22) Glucose 98 (80-110) mg/dL Lactate (0.7-2.1) mmol/L Calcium 9.5 (8.4-10.2) mg/dL Total Bilirubin 0.4 (0.2-1.3) mg/dL AST 29 (17-59) IU/L ALT 21 (<50) IU/L Alkaline Phosphatase 59 (38-126) U/L Total Creatine Kinase 134 (55-170) U/L CK-MB (CK-2) 2.53 H (<2.37) ng/mL CK-MB (CK-2) Rel Index 1.9 (1.5-5.0) % Troponin I < 0.012 (0.01-0.034) ng/mL NT-Pro-B Natriuret Pep (<125) pg/mL Total Protein 6.9 (6.3-8.2) g/dL Albumin 4.3 (3.5-5.0) g/dL Globulin 2.6 (1.7-4.1) g/dL Albumin/Globulin Ratio 1.7 (1.0-2.8) Procalcitonin (<0.5) ng/mL 08/29/19 08/29/19 08/29/19 Range/Units 13:05 13:05 13:05 WBC (4.5-11.0) X10^3/uL RBC (4.5-5.9) X10^6/uL Hgb (13.5-17.5) g/dL Hct (41-53) % MCV (80-100) fL MCH (26-34) PG MCHC (30-36) % RDW (11.6-14.8) % Plt Count (150-400) X10^3/uL Neut % (Auto) (50-75) % Lymph % (Auto) (25-40) % [place] % (Auto) (3-14) % Eos % (Auto) (2-4) % Baso % (Auto) (0-2) % Neut # (Auto) (8487-0756) /uL Lymph # (Auto) (6594-3952) /uL [place] # (Auto) (0-900) /uL Eos # (Auto) (0-450) /uL Baso # (Auto) (0-100) /uL PT (10.1-12.7) SECONDS INR (0.9-1.3) ABG pH (7.35-7.45) ABG pCO2 (35-45) mmHg ABG pO2 (80-100) mmHg ABG HCO3 (22-26) mmol/L ABG Total CO2 (21-31) mmol/L ABG O2 Saturation (95-100) % ABG Base Excess (-2-2) mmol/L FiO2 Sodium (137-145) mmol/L Potassium (3.4-5.1) mmol/L Chloride (98-107) mmol/L Carbon Dioxide (22-32) mmol/L BUN (9-20) mg/dL Creatinine (0.66-1.25) mg/dL Estimated GFR (>60) mL/min BUN/Creatinine Ratio (6-22) Glucose (80-110) mg/dL Lactate 0.8 (0.7-2.1) mmol/L Calcium (8.4-10.2) mg/dL Total Bilirubin (0.2-1.3) mg/dL AST (17-59) IU/L ALT (<50) IU/L Alkaline Phosphatase (38-126) U/L Total Creatine Kinase (55-170) U/L CK-MB (CK-2) (<2.37) ng/mL CK-MB (CK-2) Rel Index (1.5-5.0) % Troponin I (0.01-0.034) ng/mL NT-Pro-B Natriuret Pep 72 (<125) pg/mL Total Protein (6.3-8.2) g/dL Albumin (3.5-5.0) g/dL Globulin (1.7-4.1) g/dL Albumin/Globulin Ratio (1.0-2.8) Procalcitonin < 0.05 (<0.5) ng/mL 08/29/19 Range/Units 13:23 WBC (4.5-11.0) X10^3/uL RBC (4.5-5.9) X10^6/uL Hgb (13.5-17.5) g/dL Hct (41-53) % MCV (80-100) fL MCH (26-34) PG MCHC (30-36) % RDW (11.6-14.8) % Plt Count (150-400) X10^3/uL Neut % (Auto) (50-75) % Lymph % (Auto) (25-40) % [place] % (Auto) (3-14) % Eos % (Auto) (2-4) % Baso % (Auto) (0-2) % Neut # (Auto) (6997-5732) /uL Lymph # (Auto) (3583-1004) /uL [place] # (Auto) (0-900) /uL Eos # (Auto) (0-450) /uL Baso # (Auto) (0-100) /uL PT (10.1-12.7) SECONDS INR (0.9-1.3) ABG pH 7.42 (7.35-7.45) ABG pCO2 42.4 (35-45) mmHg ABG pO2 91 (80-100) mmHg ABG HCO3 27 H (22-26) mmol/L ABG Total CO2 29 (21-31) mmol/L ABG O2 Saturation 97 (95-100) % ABG Base Excess 3.0 H (-2-2) mmol/L FiO2 21 Sodium (137-145) mmol/L Potassium (3.4-5.1) mmol/L Chloride (98-107) mmol/L Carbon Dioxide (22-32) mmol/L BUN (9-20) mg/dL Creatinine (0.66-1.25) mg/dL Estimated GFR (>60) mL/min BUN/Creatinine Ratio (6-22) Glucose (80-110) mg/dL Lactate (0.7-2.1) mmol/L Calcium (8.4-10.2) mg/dL Total Bilirubin (0.2-1.3) mg/dL AST (17-59) IU/L ALT (<50) IU/L Alkaline Phosphatase (38-126) U/L Total Creatine Kinase (55-170) U/L CK-MB (CK-2) (<2.37) ng/mL CK-MB (CK-2) Rel Index (1.5-5.0) % Troponin I (0.01-0.034) ng/mL NT-Pro-B Natriuret Pep (<125) pg/mL Total Protein (6.3-8.2) g/dL Albumin (3.5-5.0) g/dL Globulin (1.7-4.1) g/dL Albumin/Globulin Ratio (1.0-2.8) Procalcitonin (<0.5) ng/mL Discharge Plan Departure Patient Disposition: Home Clinical Impression: Reactive airway disease Qualifiers: Asthma severity: mild Asthma persistence: intermittent Asthma complication type: with acute exacerbation Qualified Code(s): J45.21 - Mild intermittent asthma with (acute) exacerbation Discharge Date/Time: 08/29/19 15:00 Instructions: DI for Reactive Airway Disease-Adult Activity Restrictions/Additional Instructions: Thank you for entrusting me with your care today. As discussed, your your EKG and laboratory work is non-remarkable. Your chest x-ray some mild irritation which may be viral or due to your allergies. I suspect her symptoms are most likely caused by reactive airway disease associated with allergies. We have prescribed you an inhaler, use this every 4-6 hours as needed for shortness of breath. I also recommend taking loratadine 10mg daily for two week to help with allergy symptoms, this medication can be purchased [id number]. Please follow-up with your primary care provider in 1-2 weeks for further evaluation if your symptoms continue. Return emergency department for any new or worsening symptoms such as chest pain, worsening shortness of breath, dizziness, syncope, or any other concerns. Prescriptions: No Action aspirin 81 mg Tablet,Delayed Release (Dr/Ec) 81 mg PO DAILY Qty: 0 RF: 0 hydrocodone-acetaminophen [Avant] 5-325 mg tablet 1 tab PO Q6H PRN (Reason: pain) Qty: 7 RF: 0 Vitamins 1 dose PO DAILY RF: 0 Referrals: Anca Bhatia MD [Primary Care Provider] -
[2019-08-29 14:48] VITALS: BP 143/70; PULSE 56; RESP 16; TEMP 36.6; O2SAT 97
== END 2019-08-29 15:00 | disposition home or self-care (01) ==
PROVIDERS: Emergency Medicine; Emergency Provider Nurse Practitioner; Family Provider Family Medicine; PCP Family Medicine
DX: J45.21 Mild intermittent asthma with (acute) exacerbation (principal); I25.10 Atherosclerotic heart disease of native coronary artery without angina pectoris
CPT/HCPCS: 36415; 36600; 71046; 80053; 82550; 82553; 82805; 83605; 83880; 84145; 84484; 85025; 85610; 93005; 94640; 99284

== ENCOUNTER 2020-04-19 07:05 | Emergency (ER) | payer SELFPAY ==
[2020-04-19] VITALS (22 sets, daily range): BP systolic 108–158; BP diastolic 67–86; PULSE 52–83; RESP 12–25; TEMP 36.6; O2SAT 94–100; BMI 28.5
--- NOTE | 2020-04-19 07:14 | ED.CHESTPAIN ---
HPI - Chest Pain General Chief Complaint: Chest Pain Stated Complaint: Chest Pain Time Seen by Provider: 04/19/20 07:12 Source: patient and EMS Mode of arrival: EMS Limitations: no limitations History of Present Illness HPI narrative: Patient is a 64-year-old male with history of coronary artery disease and stents presenting with shortness of breath and chest pain. He states that over last couple of weeks she has had increasing shortness of breath with exertion. He was previously able to go about 3 flights of stairs before he needed tender. However today he was stepping on every slight or every 2 flights. He does get some chest discomfort with this as well. He currently is chest pain free. He occasionally has a cough but no fever. He denies any orthopnea. He does not like taking medications but he is taking his aspirin. MD complaint: chest pain Duration: progressively worsening Onset: during exertion Exacerbating factors: exertion Related Data Home Medications Medication Instructions Recorded Confirmed aspirin 81 mg PO DAILY #0 07/31/11 09/15/18 Vitamins 1 dose PO DAILY 09/15/18 09/15/18 Previous Rx's Medication Instructions Recorded hydrocodone-acetaminophen [[place]] 1 tab PO Q6H PRN #7 tab 09/15/18 Allergies Allergy/AdvReac Type Severity Reaction Status Date / Time No Known Drug Allergies Allergy Verified 08/29/19 11:16 Review of Systems Review of Systems Narrative: GENERAL: Denies chills, fatigue, malaise, fever, sweats, travel HEENT: Denies sinus pain, ear pain, sore throat, difficulty swallowing, neck pain RESPIRATORY: Denies dyspnea, cough, wheezing, hemoptysis, sputum. CARDIOVASCULAR: See HPI GASTROINTESTINAL: See HPI : Denies dysuria, frequency, incontinence, hematuria, urinary retention, flank pain. MUSCULOSKELETAL: Denies weakness, joint pain, or bony pain SKIN: No rash, no erythema, no pruritus NEUROLOGIC: Denies weakness, dizziness, headache, numbness, change in speech, confusion PSYCHIATRIC: No concerning psychosocial issues. 12 point review of systems is negative except for those stated above and HPI Patient History Medical History (Updated 04/19/20 @ 11:13 by Melissa Albright DO) Coronary artery disease Surgical History History of bilateral inguinal hernia repair History of heart artery stent Social History Smoking Status: Never smoker Smoking Status: Never smoker alcohol intake frequency: 0-2 drinks per day Substance Use Type: marijuana Exam Initial Vital Signs Initial Vital Signs: Vital Signs Pulse Rate 76 04/19/20 07:08 Pulse Oximetry 96 04/19/20 07:08 GENERAL: Well-appearing, well-nourished and in no acute distress. HEENT: Head atraumatic,EOMI, pupils reactive, face symmetric, moist mucous membranes CARDIOVASCULAR: Regular rate and rhythm without murmurs, rubs or gallops. RESPIRATORY: Breath sounds equal bilaterally, no wheezes rales or rhonchi. ABDOMEN: Soft, nontender. Normoactive bowel sounds all 4 quadrants. No guarding or rebound. EXTREMITIES: Normal range of motion, no clubbing or edema. Neurovascularly intact NEUROLOGICAL: Alert and oriented x4.Normal gait and speech. SKIN: Warm, dry, no laceration, no petechiae, no rashes or lesions. Course Orders Ordered: ED Orders 04/19/20 07:10 Complete Blood Count AUTO DIFF Stat Comprehensive Metabolic Panel Stat D Dimer Stat Lipase Stat NT-proBNP (BNP-Adult 18+) Stat Partial Thromboplastin Time Stat Prothrombin Time INR Stat Troponin & CK Cardiac Panel Stat 04/19/20 07:13 XR chest 1V Stat EKG-12 Lead Stat 04/19/20 08:15 COVID19 Stat 04/19/20 09:18 Troponin I Stat Vital Signs Vital signs: Vital Signs - 8 hr 04/19/20 11:30 04/19/20 12:00 04/19/20 12:30 Pulse Rate 52 L 65 Respiratory Rate 16 17 19 Blood Pressure 125/70 125/67 Pulse Oximetry 100 99 100 04/19/20 12:31 04/19/20 13:00 04/19/20 13:54 Pulse Rate 69 60 Respiratory Rate 17 25 H Blood Pressure 127/70 117/84 Pulse Oximetry 100 99 04/19/20 13:55 04/19/20 14:00 Pulse Rate 63 65 Respiratory Rate 19 21 Blood Pressure 127/72 131/78 Pulse Oximetry 99 97 MDM - Chest Pain Lab Data Attestation: I reviewed the patient's lab results. Result diagrams: 04/19/20 07:10 04/19/20 07:10 Labs: Lab Results 04/19/20 04/19/20 04/19/20 Range/Units 07:10 07:10 07:10 WBC 7.0 (4.5-11.0) X10^3/uL RBC 4.85 (4.5-5.9) X10^6/uL Hgb 14.6 (13.5-17.5) g/dL Hct 43.5 (41-53) % MCV 89.9 (80-100) fL MCH 30.2 (26-34) PG MCHC 33.6 (30-36) % RDW 13.7 (11.6-14.8) % Plt Count 248 (150-400) X10^3/uL Neut % (Auto) 51.4 (50-75) % Lymph % (Auto) 35.2 (25-40) % Garrett % (Auto) 9.5 (3-14) % Eos % (Auto) 3.2 (2-4) % Baso % (Auto) 0.7 (0-2) % Neut # (Auto) 3600 (9291-6445) /uL Lymph # (Auto) 2500 (7097-2095) /uL Garrett # (Auto) 700 (0-900) /uL Eos # (Auto) 200 (0-450) /uL Baso # (Auto) 100 (0-100) /uL PT 11.7 (10.1-12.7) SECONDS INR 1.0 (0.9-1.3) APTT 37 H (26.4-36.2) SECONDS D-Dimer (<230) ng/mL Sodium 136 L (137-145) mmol/L Potassium 3.6 (3.4-5.1) mmol/L Chloride 101 (98-107) mmol/L Carbon Dioxide 25 (22-32) mmol/L BUN 11 (9-20) mg/dL Creatinine 0.75 (0.66-1.25) mg/dL Estimated GFR > 60.0 (>60) mL/min BUN/Creatinine Ratio 14.7 (6-22) Glucose 99 (80-110) mg/dL Calcium 9.9 (8.4-10.2) mg/dL Total Bilirubin 0.9 (0.2-1.3) mg/dL AST 39 (17-59) IU/L ALT 32 (<50) IU/L Alkaline Phosphatase 67 (38-126) U/L Total Creatine Kinase 168 (55-170) U/L CK-MB (CK-2) 2.97 H (<2.37) ng/mL CK-MB (CK-2) Rel Index 1.8 (1.5-5.0) % Troponin I < 0.012 (0.01-0.034) ng/mL NT-Pro-B Natriuret Pep 80 (<125) pg/mL Total Protein 7.5 (6.3-8.2) g/dL Albumin 4.6 (3.5-5.0) g/dL Globulin 2.9 (1.7-4.1) g/dL Albumin/Globulin Ratio 1.6 (1.0-2.8) Lipase 57 (23-300) U/L SARS-CoV-2 (PCR) (Negative) 04/19/20 04/19/20 04/19/20 Range/Units 07:10 08:15 09:18 WBC (4.5-11.0) X10^3/uL RBC (4.5-5.9) X10^6/uL Hgb (13.5-17.5) g/dL Hct (41-53) % MCV (80-100) fL MCH (26-34) PG MCHC (30-36) % RDW (11.6-14.8) % Plt Count (150-400) X10^3/uL Neut % (Auto) (50-75) % Lymph % (Auto) (25-40) % Garrett % (Auto) (3-14) % Eos % (Auto) (2-4) % Baso % (Auto) (0-2) % Neut # (Auto) (4281-9809) /uL Lymph # (Auto) (2368-5606) /uL Garrett # (Auto) (0-900) /uL Eos # (Auto) (0-450) /uL Baso # (Auto) (0-100) /uL PT (10.1-12.7) SECONDS INR (0.9-1.3) APTT (26.4-36.2) SECONDS D-Dimer < 200 (<230) ng/mL Sodium (137-145) mmol/L Potassium (3.4-5.1) mmol/L Chloride (98-107) mmol/L Carbon Dioxide (22-32) mmol/L BUN (9-20) mg/dL Creatinine (0.66-1.25) mg/dL Estimated GFR (>60) mL/min BUN/Creatinine Ratio (6-22) Glucose (80-110) mg/dL Calcium (8.4-10.2) mg/dL Total Bilirubin (0.2-1.3) mg/dL AST (17-59) IU/L ALT (<50) IU/L Alkaline Phosphatase (38-126) U/L Total Creatine Kinase (55-170) U/L CK-MB (CK-2) (<2.37) ng/mL CK-MB (CK-2) Rel Index (1.5-5.0) % Troponin I < 0.012 (0.01-0.034) ng/mL NT-Pro-B Natriuret Pep (<125) pg/mL Total Protein (6.3-8.2) g/dL Albumin (3.5-5.0) g/dL Globulin (1.7-4.1) g/dL Albumin/Globulin Ratio (1.0-2.8) Lipase (23-300) U/L SARS-CoV-2 (PCR) Negative (Negative) Imaging Data Chest x-ray: Radiologist's Impression: PROCEDURE: XR CHEST 1V INDICATIONS: chest pain and sob TECHNIQUE: One view of the chest was acquired. COMPARISON: [facility], , XR CHEST 2V, 08/29/2019, 11:42. FINDINGS: Surgical changes and devices: None. Lungs and pleura: Lungs are clear. No pleural effusions or pneumothorax. Mediastinum: Mildly tortuous thoracic aorta and aortic arch calcification is seen. Heart size is normal. Bones and chest wall: No suspicious bony lesions. Overlying soft tissues appear unremarkable. IMPRESSION: No acute cardiopulmonary pathology. Dictated by: Tavo Gonzalez M.D. on 04/19/2020 at 8:20 ECG Data Attestation: I personally reviewed and interpreted this ECG as follows: Prior ECG tracings: available for review Interpretation: EKG 1. Sinus rhythm rate 80 p.r. interval [address] changes right bundle-branch block noted similar to previous EKG in August of 2019 EKG 2. Sinus rhythm rate 65 no changes from prior MDM Narrative Medical decision making narrative: Patient is currently chest pain free in not short of breath at rest in the emergency department. Symptoms are clearly concerning for angina equivalent, especially with known coronary artery disease. 0820- Dr. Gonzalez, recommends transferring to [facility] 0900 Dr. Arriola, hospitalist at [facility] happily except for transfer Discharge Plan Departure Patient Disposition: [facility] Clinical Impression: Chest pain Prescriptions: No Action aspirin 81 mg Tablet,Delayed Release (Dr/Ec) 81 mg PO DAILY Qty: 0 RF: 0 hydrocodone-acetaminophen [[place]] 5-325 mg tablet 1 tab PO Q6H PRN (Reason: pain) Qty: 7 RF: 0 Vitamins 1 dose PO DAILY RF: 0 Referrals: Anca Bhatia MD [Primary Care Provider] -
[2020-04-19 07:20] LABS: Add Manual Diff / Slide Review NO; Basophils Absolute Auto 100 /uL (0-100); Basophils Percent Auto 0.7 % (0-2); Eosinophils Absolute Auto 200 /uL (0-450); Eosinophils Percent Auto 3.2 % (2-4); Hematocrit 43.5 % (41-53); Hemoglobin 14.6 g/dL (13.5-17.5); Lymphocytes Absolute Auto 2500 /uL (1100-4500); Lymphocytes Percent Auto 35.2 % (25-40); Mean Corpuscular HGB Conc 33.6 % (30-36); Mean Corpuscular Hemoglobin 30.2 PG (26-34); Mean Corpuscular Volume 89.9 fL (80-100); Monocytes Absolute Auto 700 /uL (0-900); Monocytes Percent Auto 9.5 % (3-14); Neutrophils Absolute Auto 3600 /uL (1500-7000); Neutrophils Percent Auto 51.4 % (50-75); Platelet Count 248 X10^3/uL (150-400); Red Blood Cell Count 4.85 X10^6/uL (4.5-5.9); Red Cell Distribution Width 13.7 % (11.6-14.8)
[2020-04-19 07:29] LABS: Prothrombin Time 11.7 SECONDS (10.1-12.7)
[2020-04-19 07:32] LABS: Alanine Aminotransferase 32 IU/L (<50); Albumin 4.6 g/dL (3.5-5.0); Albumin Globulin Ratio 1.6 (1.0-2.8); Alkaline Phosphatase 67 U/L (38-126); Aspartate Aminotransferase 39 IU/L (17-59); BUN Creatinine Ratio 14.7 (6-22); Bilirubin Total 0.9 mg/dL (0.2-1.3); Blood Urea Nitrogen 11 mg/dL (9-20); Calcium 9.9 mg/dL (8.4-10.2); Carbon Dioxide 25 mmol/L (22-32); Chloride 101 mmol/L (98-107); Creatine Kinase 168 U/L (55-170); Estimated Glomerular Filt Rate > 60.0 mL/min (>60); Globulin 2.9 g/dL (1.7-4.1); Glucose 99 mg/dL (80-110); Lipase 57 U/L (23-300); PTT Partial Thromboplastin Tim 37 SECONDS (26.4-36.2); Potassium 3.6 mmol/L (3.4-5.1); Sodium 136 mmol/L (137-145); Total Protein 7.5 g/dL (6.3-8.2)
[2020-04-19 07:44] LABS: NT-proBNP (BNP-Adult 18+) 80 pg/mL (<125); Troponin I < 0.012 ng/mL (0.01-0.034)
[2020-04-19 07:47] LABS: CKMB % Relative Index 1.8 % (1.5-5.0); Creatine Kinase MB 2.97 ng/mL (<2.37); HEMOLYSIS 42 (0-50)
[2020-04-19 08:29] LABS: D Dimer < 200 ng/mL (<230)
[2020-04-19 09:48] LABS: COVID19 -Nasal RAPID Negative (Negative)
[2020-04-19 09:50] LABS: Troponin I < 0.012 ng/mL (0.01-0.034)
== END 2020-04-19 14:18 | disposition short-term general hospital (02) ==
PROVIDERS: Emergency Provider Emergency Medicine; Family Provider Family Medicine; PCP Family Medicine
DX: R07.9 Chest pain, unspecified (principal); R06.02 Shortness of breath; I25.10 Atherosclerotic heart disease of native coronary artery without angina pectoris; Z95.5 Presence of coronary angioplasty implant and graft; Z79.82 Long term (current) use of aspirin; Z20.828 Contact with and (suspected) exposure to other viral communicable diseases
CPT/HCPCS: 36415; 71045; 80053; 82550; 82553; 83690; 83880; 84484; 85025; 85379; 85610; 85730; 87635; 93005; 99283; 99284

== ENCOUNTER → 2020-04-23 13:21 | Outpatient (ROUT) | payer SELFPAY ==
[2020-04-23 14:17] LABS: Prostate Specific Antigen 0.464 ng/mL (0.10-4.00)
== END ==
PROVIDERS: Family Provider Family Medicine; PCP Family Medicine; Visit Provider Family Medicine
DX: Z00.00 Encounter for general adult medical examination without abnormal findings (principal); Z12.5 Encounter for screening for malignant neoplasm of prostate
CPT/HCPCS: 84153